=== PATIENT | female | born 1990 | race Caucasian/White ===

== ENCOUNTER 2019-04-02 16:05 | Emergency (ER) | payer SELFPAY ==
--- NOTE | 2019-04-02 16:25 | ED ---
Psychiatric Complaint - HPI Summary HPI Summary: 28 year old female presents to the ED complaining that she feels like she is overdosing on heroin, although she denies taking any heroin. She has suicidal ideation without a plan. Patient feels "like she is dying". She also reports being thirsty. Per homeless intermediate, patient has been having odd behavior in the past several days. Patient claims she got in a fight with her boyfriend several days ago, ending their relationship. She has no thoughts of harming herself or others. Patient has a history of depression and anxiety. She does not drink alcohol, smoke tobacco, or do recreational drugs. - History Of Current Complaint Chief Complaint: EDMentalHealth Time Seen by Provider: 04/02/19 16:16 Hx Obtained From: Patient Hx Last Menstrual Period: 03/14/13 ?: No Onset/Duration: Lasting Days, Still Present Timing: Constant Character: Manic, Depressed Aggravating Factor(s): Recent Stress - Had a fight with boyfriend a week ago Associated Signs And Symptoms: Positive: Hostile Related History: Positive For: Prior Psychiatric Issues - depression, anxiety Has Suicidal: Reports: Thoughts. Denies: With A Plan, Demonstrates Gesture, Has Prior Attempt(s) Has Homicidal: Denies: Thoughts, With A Plan, Demonstrates Gesture, Has Prior Attempt(s) - Allergies/Home Medications Allergies/Adverse Reactions: Allergies Allergy/AdvReac Type Severity Reaction Status Date / Time latex Allergy Rash Verified 10/25/17 10:06 PMH/Surg Hx/FS Hx/Imm Hx Endocrine/Hematology History: Denies: Hx Diabetes Cardiovascular History: Denies: Hx Hypertension, Hx Pacemaker/ICD History: Denies: Hx Renal Disease Sensory History: Denies: Hx Hearing Aid Psychiatric History: Reports: Hx Anxiety, Hx Depression Denies: Hx Panic Disorder - Surgical History Surgery Procedure, Year, and Place: DENIES Infectious Disease History: No Infectious Disease History: Denies: Traveled Outside the [place] in Last 30 Days - Social History Alcohol Use: None Substance Use Type: Reports: None Hx Tobacco Use: No Smoking Status (MU): Never Smoked Tobacco Review of Systems Neurological: Other - Feels like she is on heroin Psychological: Other - Suicidal ideation All Other Systems Reviewed And Are Negative: Yes Physical Exam - Summary Physical Exam Summary: VITAL SIGNS: Reviewed. GENERAL: Patient is a well-developed and nourished female who is lying comfortable in the stretcher. Patient is not in any acute respiratory distress. HEAD AND FACE: No signs of trauma. No ecchymosis, hematomas or skull depressions. No sinus tenderness. EYES: PERRLA, EOMI x 2, No injected conjunctiva, no nystagmus. EARS: Hearing grossly intact. Ear canals and tympanic membranes are within normal limits. MOUTH: Oropharynx within normal limits. NECK: Supple, trachea is midline, no adenopathy, no JVD, no carotid bruit, no c- spine tenderness, neck with full ROM. CHEST: Symmetric, no tenderness at palpation. LUNGS: Clear to auscultation bilaterally. No wheezing or crackles. CVS: Regular rate and rhythm, S1 and S2 present, no murmurs or gallops appreciated. ABDOMEN: Soft, non-tender. No signs of distention. No rebound, no guarding, and no masses palpated. Bowel sounds are normal. EXTREMITIES: FROM in all major joints, no edema, no cyanosis or clubbing. NEURO: Alert and oriented x 3. No acute neurological deficits. Speech is normal and follows commands. SKIN: Dry and warm. PSYCH: Depressed, quiet. No homicidal thoughts or plan. Suicidal thoughts with no plan. No signs of psychosis or pressure speech. No tangential speech. Triage Information Reviewed: Yes Vital Signs On Initial Exam: Initial Vitals Temp Pulse Resp BP Pulse Ox 97.5 F 94 16 121/79 97 04/02/19 16:11 04/02/19 16:11 04/02/19 16:11 04/02/19 16:11 04/02/19 16:11 Vital Signs Reviewed: Yes Procedures - Sedation Patient Received Moderate/Deep Sedation with Procedure: No Diagnostics - Vital Signs Vital Signs Temp Pulse Resp BP Pulse Ox 04/02/19 16:11 97.5 F 94 16 121/79 97 - Laboratory Result Diagrams: 04/02/19 16:35 04/02/19 16:35 Lab Statement: Any lab studies that have been ordered have been reviewed, and results considered in the medical decision making process. Course/Dx - Course Assessment/Plan: 28 year old female presents to the ED complaining that she feels like she is overdosing on heroin, although she denies taking any heroin. She has suicidal ideation without a plan. Patient feels "like she is dying". She also reports being thirsty. Per homeless intermediate, patient has been having odd behavior in the past several days. Patient claims she got in a fight with her boyfriend several days ago, ending their relationship. She has no thoughts of harming herself or others. Patient has a history of depression and anxiety. She does not drink alcohol, smoke tobacco, or do recreational drugs. Blood work w/o a significant abnormality. She is medically cleared. She is awaiting a MHE. Patient is hemodynamically stable and A+O x 3. Patient was evaluated by Dr. Smiley and he recommends to hold the patient onto the morning ambulated by Dr. Mckeon. At this time the patient will sign out to Dr. Ladd at shift change. - Differential Dx/Clinical Impression Differential Diagnosis/HQI/PQRI: Positive: Anxiety, Depression Provider Diagnosis: Depression Discharge ED - Sign-Out/Discharge Documenting (check all that apply): Sign-Out Patient Signing out patient TO: Rudolph Sy - Patient is a signout to Dr. Sy at change of shifts at 2200 on 04/02/19 pending psych eval in the morning. - Discharge Plan Referrals: Yolanda Weston PA [Primary Care Provider] - - Attestation Statements Document Initiated by Darrylibagnes: Yes Documenting Scribe: Marcus Gardner Provider For Whom Delphine is Documenting (Include Credential): Manas Lopez MD Scribe Attestation: Marcus Calle, scribed for Manas Lopez MD on 04/02/19 at 2150. Scribe Documentation Reviewed: Yes Provider Attestation: The documentation as recorded by the Marcus bustillos accurately reflects the service I personally performed and the decisions made by me, Manas Lopez MD Status of Scribe Document: Viewed
[2019-04-02 16:56] LABS: ABS Eosinophils 0.2 10^3/ul (0-0.6); ABS Lymphocytes 1.2 10^3/ul (1.0-4.8); ABS Monocytes 0.7 10^3/ul (0-0.8); ABS Neutrophils 5.4 10^3/ul (1.5-7.7); Eosinophil % 3.2 %; Hematocrit 37 % (35-47); Lymphocyte % 16.3 %; Mean Corpuscular HGB Conc 35 g/dL (31-36); Mean Corpuscular Hemoglobin 31 pg (27-31); Mean Corpuscular Volume 89 fL (80-97); Mean Platelet Volume 7.5 fL (7.4-10.4); Platelet Count 281 10^3/uL (150-450); Red Blood Count 4.18 10^6 /uL (3.70-4.87); Red Cell Distribution Width 15 % (10-15); White Blood Count 7.7 10^3/uL (3.5-10.8)
[2019-04-02 17:00] LABS: ALT 37 U/L (7-52); AST 43 U/L (13-39); Albumin 4.3 g/dL (3.2-5.2); Albumin/Globulin Ratio 1.7 (1-3); Alkaline Phosphatase 58 U/L (34-104); Anion Gap 6 mmol/L (2-11); BUN/Creatinine Ratio 15.7 (8-20); Blood Urea Nitrogen 8 mg/dL (6-24); CO2 Carbon Dioxide 30 mmol/L (22-32); Calcium 9.2 mg/dL (8.6-10.3); Chloride 100 mmol/L (101-111); EGFR Non-African American 144.7 (>60); Globulin 2.5 g/dL (2-4); Glucose 94 mg/dL (70-100); Potassium 3.3 mmol/L (3.5-5.0); Sodium 136 mmol/L (135-145); Total Protein 6.8 g/dL (6.4-8.9)
[2019-04-02 17:29] LABS: Acetaminophen < 15 mcg/mL; Alcohol < 10 mg/dL (<10); Salicylate < 2.50 mg/dL (<30)
[2019-04-02 17:44] LABS: TSH (Thyroid Stimulating Horm) 0.57 mcIU/mL (0.34-5.60)
[2019-04-02 19:21] LABS: Urine Appearance Cloudy; Urine Bilirubin Negative (Negative); Urine Blood Negative (Negative); Urine Color Yellow; Urine Glucose Negative (Negative); Urine Ketones Negative (Negative); Urine Nitrite Negative (Negative); Urine Protein Negative (Negative); Urine Specific Gravity 1.006 (1.010-1.030); Urine Urobilinogen Negative (Negative)
[2019-04-02 19:38] LABS: Urine Benzodiazepine Screen None Detected (None Detect); Urine Opiates Screen None Detected (None Detect)
--- NOTE | 2019-04-02 22:10 | ED ---
Progress - Progress Note Progress Note: Pt is a signout from Dr. Lopez at 2200 on 04/02/2019 for MH hold. Course/Dx - Course Course Of Treatment: Pt is a signout from Dr. Lopez at 2200 on 04/02/2019 for MH hold. Pt stable on shift. Will be signed out to Dr. Win at 0700 on 2019. - Diagnoses Provider Diagnoses: Depression, Methamphetamine abuse Discharge ED - Sign-Out/Discharge Documenting (check all that apply): Receiving Sign-Out Receiving patient FROM: Manas Lopez - Discharge Plan Condition: Stable Disposition: HOME Patient Education Materials: Polysubstance Abuse (ED) Referrals: Yolanda Weston PA [Primary Care Provider] - - Billing Disposition and Condition Condition: STABLE Disposition: Home - Attestation Statements Document Initiated by Darrylibe: Yes Documenting Scribe: Ro Kim Provider For Whom Delphine is Documenting (Include Credential): Rudolph Sy MD. Scribe Attestation: Ro Calle scribed for Rudolph Sy MD. on 04/04/19 at 0539. Scribe Documentation Reviewed: Yes Provider Attestation: The documentation as recorded by the darrylibeRo accurately reflects the service I personally performed and the decisions made by Rudolph garcia MD. Status of Scribe Document: Viewed
[2019-04-02] MEDS ORDERED: hydrOXYzine HCL TAB* 50 MG PO ONE (22:49)
[2019-04-03] MEDS ORDERED: OLANzapine TAB*ODT* 10 MG TAB PO ONE (00:23)
--- NOTE | 2019-04-03 08:13 | ED ---
Progress - Progress Note Progress Note: Patient is a sign-out at 07:00 on 04/03/19 from Rudolph Sy MD to Dr. Juanita Win MD at shift change, pending mental health hold and disposition. At 09:55, Dr. Yoni Mckeon reports that patient will be discharged with a diagnosis of methamphetamine abuse disorder. - Consult/PCP Time Called: 09:55 Consult/PCP: Yoni Mckeon Course/Dx - Diagnoses Provider Diagnoses: Depression, Methamphetamine abuse - Provider Notifications Discussed Care Of Patient With: Yoni Mckeon - At 09:55, Dr. Yoni Mckeon reports that patient will be discharged with a diagnosis of methamphetamine abuse disorder. Time Discussed With Above Provider: 09:55 Instructed by Provider To: Other - Discharge Discharge ED - Sign-Out/Discharge Documenting (check all that apply): Patient Departure - Discharge, Receiving Sign-Out Receiving patient FROM: Rudolph Sy - Patient is a sign-out at 07:00 on 04/03 from Rudolph Sy MD to Dr. Juanita Win MD at shift change, pending mental health hold and disposition. - Discharge Plan Condition: Stable Disposition: HOME Referrals: Yolanda Weston PA [Primary Care Provider] - - Attestation Statements Document Initiated by Scribe: Yes Documenting Scribe: Abimbola Coronado Provider For Whom Scribe is Documenting (Include Credential): Juanita Win MD Scribe Attestation: Abimbola Calle, scribed for Juanita Win MD on 04/03/19 at 0958. Status of Scribe Document: Ready
[2019-04-03 12:43] VITALS: BP 0/0
== END 2019-04-03 12:45 | disposition home or self-care (01) ==
LOC: ED 16:05
DX: F32.9 Major depressive disorder, single episode, unspecified (principal); F15.20 Other stimulant dependence, uncomplicated; Z79.899 Other long term (current) drug therapy; R45.851 Suicidal ideations; F41.9 Anxiety disorder, unspecified
CPT/HCPCS: 36415; 80053; 80307; 80320; 80329; 81003; 84443; 85025; 99285; A9270-GY; G0480

== ENCOUNTER 2019-05-25 13:56 | Emergency (ER) | payer OTHER ==
[2019-05-25] MEDS ORDERED: LORazepam TAB(*) 1 MG PO ONE ×3 (14:26→19:17)
--- NOTE | 2019-05-25 14:32 | ED ---
Psychiatric Complaint - HPI Summary HPI Summary: 28 year old F with hx of methamphetamine abuse presenting to [facility] accompanied by police was sent by [facility] for concerns about behavior. Patient reports she thinks she is in a movie in [place]. Patient denies drug abuse. The patient rates the pain 0/10 in severity. Symptoms aggravated by nothing. Symptoms alleviated by nothing. Patient history difficult to obtain due to tangental thought process. LEVEL 5 CAVEAT: HPI is limited because of tangental thought process. - History Of Current Complaint Chief Complaint: EDMentalHealth Time Seen by Provider: 05/25/19 13:58 Hx Obtained From: Patient Hx Last Menstrual Period: 03/14/13 Aggravating Factor(s): Nothing Alleviating Factor(s): Nothing - Allergies/Home Medications Allergies/Adverse Reactions: Allergies Allergy/AdvReac Type Severity Reaction Status Date / Time buprenorphine [From Suboxone] Allergy See Comment Verified 05/25/19 14:03 latex Allergy Rash Verified 10/25/17 10:06 naloxone [From Suboxone] Allergy See Comment Verified 05/25/19 14:03 Home Medications: Home Medications NK [No Home Medications Reported] 05/25/19 [History Confirmed 05/25/19] PMH/Surg Hx/FS Hx/Imm Hx Endocrine/Hematology History: Denies: Hx Diabetes Cardiovascular History: Denies: Hx Hypertension, Hx Pacemaker/ICD History: Denies: Hx Renal Disease Sensory History: Denies: Hx Hearing Aid Psychiatric History: Reports: Hx Anxiety, Hx Depression, Hx Bipolar Disorder Denies: Hx Eating Disorder, Hx Panic Disorder, Hx Post Traumatic Stress Disorder, Hx Schizophrenia, Hx Suicide Attempt - Surgical History Surgery Procedure, Year, and Place: DENIES Infectious Disease History: No Infectious Disease History: Denies: Traveled Outside the [place] in Last 30 Days - Family History Known Family History: Positive: Non-Contributory - Social History Alcohol Use: None Substance Use Type: Reports: Other Substance Use Comment - Amount & Last Used: pt states "I used to (use) Ice" states meth Hx Tobacco Use: No Smoking Status (MU): Heavy Every Day Tobacco Smoker - Additional Comments History Additional Comments: LEVEL 5 CAVEAT: PMHx/SHx/FHx/SocHx is limited because of tangental thought process. Review of Systems - ROS Summary Review of Systems Summary: LEVEL 5 CAVEAT: ROS is limited because tangental thought process. Negative: Fever Positive: Other - tangental thought process All Other Systems Reviewed And Are Negative: No Physical Exam - Summary Physical Exam Summary: General: Well appearing, no distress HEENT: PERRL Cardiovascular: Skin is well perfused Pulmonary: No respiratory distress, no tachypnea Abdomen: Non-distended Skin: Warm, pink, dry. Track espinoza and scattered excoriations. MSK: No edema Psych: Tangential thoughts. Frequent movements, bizarre behavior. Denies SI. Neuro: A&Ox3 LEVEL 5 CAVEAT: 2/2 intoxication Triage Information Reviewed: Yes Vital Signs On Initial Exam: Initial Vitals Temp Pulse Resp BP Pulse Ox 97.8 F 93 16 129/70 100 05/25/19 14:02 05/25/19 14:02 05/25/19 14:02 05/25/19 14:02 05/25/19 14:02 Vital Signs Reviewed: Yes Procedures - Sedation Patient Received Moderate/Deep Sedation with Procedure: No Diagnostics - Vital Signs Vital Signs Temp Pulse Resp BP Pulse Ox 05/25/19 14:02 97.8 F 93 16 129/70 100 - Laboratory Result Diagrams: 05/25/19 14:42 05/25/19 14:42 Lab Statement: Any lab studies that have been ordered have been reviewed, and results considered in the medical decision making process. Course/Dx - Course Course Of Treatment: Patient taking for mental health clearance. Patient has no active medical conditions warrantly further w/u, vital signs are stable. patient given Ativan for comfort given agitation secondary to methamphetamine use. Patient placed in mental health gown and placed on observation. We'll obtain mental health evaluation. - Differential Dx/Clinical Impression Provider Diagnosis: Methamphetamine abuse - Physician Notifications Discussed Care Of Patient With: Seng Rosario - per psych SW, Dr. Rosario thinks current presentation c/w methamphetamine abuse, will await sobriety and reasses. Discharge ED - Sign-Out/Discharge Documenting (check all that apply): Sign-Out Patient Signing out patient TO: Mirta Lazaro - pending sobriety and reassessment - Discharge Plan Condition: Stable Referrals: No Primary Care Phys,NOPCP [Primary Care Provider] - - Billing Disposition and Condition Condition: STABLE - Attestation Statements Document Initiated by Scribe: Yes Documenting Scribe: Jin Jara Provider For Whom Scribe is Documenting (Include Credential): Dr.Caelyn Dex Win MD Scribe Attestation: I, Jin Jara, scribed for Dr.Caelyn Dex Win MD on 05/25/19 at 1851. Scribe Documentation Reviewed: Yes Provider Attestation: The documentation as recorded by the scribeJin accurately reflects the service I personally performed and the decisions made by me, Dr.Caelyn Dex Win MD Status of Scribe Document: Viewed
[2019-05-25 14:54] LABS: ABS Basophils 0.1 10^3/ul (0-0.2); ABS Lymphocytes 2.3 10^3/ul (1.0-4.8); ABS Monocytes 0.6 10^3/ul (0-0.8); ABS Neutrophils 6.7 10^3/ul (1.5-7.7); Eosinophil % 0.2 %; Hematocrit 39 % (35-47); Hemoglobin 13.6 g/dL (12.0-16.0); Lymphocyte % 23.8 %; Mean Corpuscular HGB Conc 35 g/dL (31-36); Mean Corpuscular Hemoglobin 31 pg (27-31); Mean Corpuscular Volume 90 fL (80-97); Mean Platelet Volume 7.7 fL (7.4-10.4); Platelet Count 270 10^3/uL (150-450); Red Blood Count 4.37 10^6 /uL (3.70-4.87); Red Cell Distribution Width 14 % (10-15); White Blood Count 9.7 10^3/uL (3.5-10.8)
[2019-05-25 15:06] LABS: ALT 20 U/L (7-52); AST 20 U/L (13-39); Albumin 4.5 g/dL (3.2-5.2); Albumin/Globulin Ratio 1.8 (1-3); Alkaline Phosphatase 48 U/L (34-104); Anion Gap 10 mmol/L (2-11); BUN/Creatinine Ratio 25.3 (8-20); Blood Urea Nitrogen 19 mg/dL (6-24); CO2 Carbon Dioxide 24 mmol/L (22-32); Calcium 9.8 mg/dL (8.6-10.3); Chloride 106 mmol/L (101-111); EGFR African American 112.2 (>60); EGFR Non-African American 92.7 (>60); Globulin 2.5 g/dL (2-4); Glucose 79 mg/dL (70-100); Potassium 3.8 mmol/L (3.5-5.0); Sodium 140 mmol/L (135-145)
[2019-05-25 15:22] LABS: Acetaminophen < 15 mcg/mL; Alcohol < 10 mg/dL (<10); Salicylate < 2.50 mg/dL (<30)
[2019-05-25 16:16] LABS: HIV 4th Generation Nonreactive (Nonreactive)
[2019-05-25 18:25] LABS: Urine Appearance Cloudy; Urine Bilirubin Negative (Negative); Urine Blood Negative (Negative); Urine Color Amber; Urine Glucose Negative (Negative); Urine Ketones 1+ (Negative); Urine Nitrite Negative (Negative); Urine Protein 2+(100 mg/dL) (Negative); Urine Specific Gravity 1.034 (1.010-1.030); Urine Urobilinogen Negative (Negative)
[2019-05-25 18:38] LABS: Urine Bacteria Absent (Absent); Urine Red Blood Cell Absent (Absent); Urine Squamous Epithelial Cell Present (Absent); Urine White Blood Cell Absent (Absent)
[2019-05-25 18:42] LABS: Urine Benzodiazepine Screen None Detected (None Detect); Urine Opiates Screen None Detected (None Detect)
--- NOTE | 2019-05-25 19:22 | ED ---
Progress - Progress Note Progress Note: The patient is a sign-out from Dr. Juanita Win MD, to Dr. Mirta Lazaro MD, at change of shift at 1900 on 05/25/19, pending sobriety and discharge. Patient administered 2mg PO Ativan. Patient yelling at staff, loud, acute psychosis. Chemical restraints (Ativan 2mg , Haldol 5mg, Benadryl 50mg) ordered and administered at 20:24. Physical restraints also in place. Physical restraints removed at 20:20. Patient sleeping. The patient is a sign-out from Dr. Mirta Lazaro MD, to Dr. Matt Jameson MD, at change of shift at 0700 on 05/26/19, pending re-evaluation and discharge. Re-Evaluation - Re-Evaluation First Eval Re-Evaluation Time: 19:20 Comment: Patient given Ativan PO Second Eval Re-Evaluation Time: 20:24 Comment: Patient loud, acute psychosis. Chemical restraints ordered and administered, physical restraints also in place. Third Eval Re-Evaluation Time: 22:20 Change: Improved Comment: Physical restraints removed. Patient asleep after chemical restraints. Course/Dx - Course Course Of Treatment: Patient administered Ativan as she is pacing around. Patient yelling and is a safety concern. She was chemically restrained with Ativan, Haldol, and Benadryl. - Diagnoses Provider Diagnoses: Methamphetamine abuse, Acute psychosis Discharge ED - Sign-Out/Discharge Documenting (check all that apply): Sign-Out Patient, Receiving Sign-Out Signing out patient TO: Matt Jameson - Patient is a sign-out to Dr. Matt Jameson MD, at change of shift at 0700 on 05/26/19, pending re-evaluation and discharge. Receiving patient FROM: Juanita Win - Patient is a sign-out from Dr. Juanita Win MD, at change of shift at 1900 on 05/25/19, pending sobriety and discharge. - Discharge Plan Condition: Stable Patient Education Materials: Polysubstance Abuse (ED) Referrals: No Primary Care Phys,NOPCP [Primary Care Provider] - Additional Instructions: Per completion of a mental health evaluation, you are cleared for release and do not require inpatient psychiatric hospitalization at this time. Please go to nearest emergency room or call 911 if safety concerns arise or condition worsens. Important Phone Numbers: [facility] ph:[phone] Suicide Prevention and Crisis Services ph:[phone] National Suicide Prevention Lifeline ph:[phone]- [facility] (9861) [facility] ph:[phone] Alcoholics Anonymous ph: [facility] ph:[phone] [facility] Police ph:[phone] RECOMMENDATION: Follow instructions of Emergency Department Staff and follow up with [facility] and [facility] on Tuesday. - Billing Disposition and Condition Condition: STABLE - Attestation Statements Document Initiated by Scribe: Yes Documenting Scribe: Anette Sanchez Provider For Whom Scribe is Documenting (Include Credential): Mirta Lazaro MD Scribe Attestation: Anette Calle, scribed for Mirta Lazaro MD on 05/26/19 at 0649. Scribe Documentation Reviewed: Yes Provider Attestation: The documentation as recorded by the Anette bustillos accurately reflects the service I personally performed and the decisions made by me, Mirta Lazaro MD Status of Scribe Document: Viewed Procedures - Sedation Patient Received Moderate/Deep Sedation with Procedure: No - Assessment for Patient Restraint Face to Face Encounter Date: 05/25/19 Face to Face Encounter Time: 22:15 Evaluation of the Patient's Immediate Situation: Patient is loud and aggressive. Patient is yelling, swearing, and being uncooperative. After medication, the patient is sleeping. Patient's Reaction to Intervention: Multiple attempts to deescalate were unsuccessful. Patient responded well to sedation, chemical restraint. Patient's Medication and Behavioral Condition: She ended up receiving Benadryl, Ativan, Haldol IM after arrival to the Emergency Department. Patient is resting comfortably. Evaluate Need for Continued Restraint: Terminate - Patient asleep.
[2019-05-25] MEDS ORDERED: LORazepam INJ* 2 MG/ML 1 ML VIAL ONE (20:08)
[2019-05-25] MEDS ORDERED: diPHENhydraMINE IV* 50 MG/ML 1 ml VIAL (BENADRYL) IM ONE (20:13)
[2019-05-25] MEDS ORDERED: Haloperidol INJ IV/IM* 5 MG/ML AMP IM ONE (20:13)
[2019-05-25] MEDS ORDERED: LORazepam INJ* 2 MG/ML 1 ML VIAL IM ONE (20:13)
--- NOTE | 2019-05-26 08:22 | ED ---
Progress - Progress Note Progress Note: The patient is a sign-out from Dr. Lazaro at 0700 05/26/19. Patient opens her eyes to voice but is not responding verbally. She will continue to metabolize. Patient is awake and wants to go home. Plan for discharge was discussed iwth the patient and she was agreeable with this plan. Re-Evaluation - Re-Evaluation First Eval Re-Evaluation Time: 19:20 Second Eval Re-Evaluation Time: 20:24 Third Eval Re-Evaluation Time: 22:20 Fourth Eval Re-Evaluation Time: 08:15 Comment: Patient opens her eyes to voice but is not responding verbally. She will continue to metabolize. Course/Dx - Course Course Of Treatment: The patient is a sign-out from Dr. Lazaro at 0700 05/26/19. Patient opens her eyes to voice but is not responding verbally. She will continue to metabolize. Patient is awake and wants to go home. Plan for discharge was discussed iwth the patient and she was agreeable with this plan. - Diagnoses Provider Diagnoses: Methamphetamine abuse, Acute psychosis Discharge ED - Sign-Out/Discharge Documenting (check all that apply): Patient Departure - Discharge - Discharge Plan Condition: Stable Disposition: HOME Patient Education Materials: Polysubstance Abuse (ED) Referrals: No Primary Care Phys,NOPCP [Primary Care Provider] - Additional Instructions: Per completion of a mental health evaluation, you are cleared for release and do not require inpatient psychiatric hospitalization at this time. Please go to nearest emergency room or call 911 if safety concerns arise or condition worsens. Important Phone Numbers: [facility] Services Unit ph:[phone] Suicide Prevention and Crisis Services ph:[phone] National Suicide Prevention Lifeline ph:[phone]- [facility] (5392) [facility] ph:[phone] Alcoholics Anonymous ph: [facility] ph:[phone] [facility] Police ph:[phone] RECOMMENDATION: Follow instructions of Emergency Department Staff and follow up with [facility] and [facility] on Tuesday. - Billing Disposition and Condition Condition: STABLE Disposition: Home - Attestation Statements Document Initiated by Scribe: Yes Documenting Scribe: Quan Adame Provider For Whom Delphine is Documenting (Include Credential): Matt Jameson MD Scribe Attestation: Quan Calle, scribed for Matt Jameson MD on 05/26/19 at 1319. Scribe Documentation Reviewed: Yes Provider Attestation: The documentation as recorded by the Quan bustillos accurately reflects the service I personally performed and the decisions made by me, Matt Jameson MD Status of Scribe Document: Viewed
[2019-05-26 11:09] VITALS: BP 96/60
== END 2019-05-26 11:07 | disposition home or self-care (01) ==
LOC: ED 13:56
DX: F15.10 Other stimulant abuse, uncomplicated (principal); F23 Brief psychotic disorder; F41.9 Anxiety disorder, unspecified; F31.9 Bipolar disorder, unspecified; F17.200 Nicotine dependence, unspecified, uncomplicated; Z88.5 Allergy status to narcotic agent; Z91.040 Latex allergy status
CPT/HCPCS: 36415; 80053; 80307; 80320; 80329; 81003; 81015; 84443; 84702; 85025; 87389; 96372; 99285; A9270-GY; G0480; J1200; J1630; J2060

== ENCOUNTER 2023-04-05 11:04 | Inpatient (IN) ==
[2023-04-05] MEDS ORDERED: Promethazine INJ(RESTRICTED) 25 MG/ML 1 ml VIAL IV PRN (12:03)
[2023-04-05] MEDS ORDERED: Buffered Lidocaine 1% SYRIN 1 ml INTRADERM ONE (12:03)
[2023-04-05] MEDS ORDERED: Nalbuphine 10 MG/ML 1 ML VIAL IV PRN (12:03)
[2023-04-05 13:01] LABS: ABS Lymphocytes 1.2 10^3/uL (1.0-4.8); ABS Monocytes 0.6 10^3/uL (0.0-0.9); ABS Neutrophils 9.6 10^3/uL (1.5-7.6); ABS Nucleated RBC 0.01 10^3/ul; Eosinophil % 0.2 %; Hematocrit 30.4 % (35-45); Hemoglobin 10.2 g/dL (11.5-14.3); Lymphocyte % 10.7 %; Mean Corpuscular Hemoglobin 28.6 pg (27-33); Mean Corpuscular Hgb Conc 33.6 g/dL (31-36); Mean Corpuscular Volume 85.1 fL (80-97); Mean Platelet Volume 8.4 fL (7.5-11.2); Nucleated Red Blood Cells % 0.1 %/100WBC (0.0-0.8); Platelet Count 349 10^3/uL (150-450); Red Blood Count 3.57 10^6/uL (3.63-4.92); Red Cell Distribution Width 15.3 % (12-17); White Blood Count 11.4 10^3/uL (3.8-11.8)
[2023-04-05 13:20] LABS: Albumin 3.3 g/dL (3.2-5.2); Albumin/Globulin Ratio 1.1 (1-3); Calcium 8.5 mg/dL (8.6-10.3); Creatinine, Serum 0.58 mg/dL (0.51-0.95); Potassium 3.9 mmol/L (3.5-5.0); Total Bilirubin 0.4 mg/dL (0.2-1.0); Total Protein 6.3 g/dL (6.4-8.9); Uric Acid 4.4 mg/dL (2.3-6.6)
[2023-04-05] MEDS ORDERED: Lactated Ringers 1000 ml BAG 1,000 ML IV ONE (14:54)
[2023-04-05 15:03] LABS: Urine Creatinine Concentration 153.62 mg/dL (20.00-320.00); Urine TP Creat Ratio 0.8 mg/mg
[2023-04-05] MEDS: Calcium Carb (TUMS) 500 mg CHEW TAB PO PRN (15:09)
[2023-04-05 15:20] LABS: Urine Benzodiazepine Screen None Detected (None Detect); Urine Cannabinoids Screen None Detected (None Detect); Urine Opiates Screen None Detected (None Detect)
[2023-04-05] MEDS: Benzocaine/Menthol LOZ MT PRN (15:24)
[2023-04-05] MEDS ORDERED: Penicillin G Potassium IV 5,000,000 UNITS in NS 0.9% 100 ml BAG 100 ML IVPB ONE (18:14)
[2023-04-05 18:50] LABS: Magnesium 1.8 mg/dL (1.9-2.7)
[2023-04-05] MEDS ORDERED: Lidocaine 1% VIAL 10 MG/ML 30 ML VIAL INJ PRN (19:07)
[2023-04-05] MEDS ORDERED: Lactated Ringers 1000 ml BAG 1,000 ML IV SCH (20:00)
[2023-04-05] MEDS: Penicillin G Potassium IV 3,000,000 UNITS in NS 0.9% 100 ml BAG 100 ML IVPB SCH (22:45)
[2023-04-06] MEDS: Penicillin G Potassium IV 3,000,000 UNITS in NS 0.9% 100 ml BAG 100 ML IVPB SCH (02:54)
[2023-04-06] MEDS ORDERED: Dibucaine 1% OINT 28.35 GM TUBE PR PRN (04:48)
[2023-04-06] MEDS ORDERED: Glycerin ADULT 2.4 gm SUPP PR PRN (04:48)
[2023-04-06] MEDS ORDERED: Witch Hazel PAD JAR TOPICAL PRN (04:48)
[2023-04-06] MEDS ORDERED: Oxytocin in LR 20,000 MILLI.UNIT/1,000 ML BAG IV SCH (04:50)
[2023-04-06] MEDS ORDERED: Lactated Ringers 1000 ml BAG 1,000 ML IV SCH (05:00)
[2023-04-06] MEDS: Calcium Carb (TUMS) 500 mg CHEW TAB PO PRN ×2 (09:24→20:35)
[2023-04-06] MEDS: Nicotine GUM 4MG FRUIT FLAVOR PO PRN ×2 (13:06→20:45)
[2023-04-06] MEDS: Benzocaine/Menthol LOZ MT PRN (17:25)
[2023-04-07] MEDS ORDERED: risperiDONE-M 1 mg Oradis TAB PO PRN (05:50)
[2023-04-07 06:56] LABS: ABS Basophils 0.1 10^3/uL (0.0-0.1); ABS Eosinophils 0.1 10^3/uL (0.0-0.5); ABS Lymphocytes 2.5 10^3/uL (1.0-4.8); ABS Monocytes 0.8 10^3/uL (0.0-0.9); ABS Neutrophils 8.9 10^3/uL (1.5-7.6); Eosinophil % 0.7 %; Hematocrit 28.8 % (35-45); Hemoglobin 9.6 g/dL (11.5-14.3); Mean Corpuscular Hemoglobin 28.6 pg (27-33); Mean Corpuscular Hgb Conc 33.4 g/dL (31-36); Mean Corpuscular Volume 85.6 fL (80-97); Mean Platelet Volume 8.4 fL (7.5-11.2); Platelet Count 310 10^3/uL (150-450); Red Blood Count 3.37 10^6/uL (3.63-4.92); Red Cell Distribution Width 15.1 % (12-17); White Blood Count 12.3 10^3/uL (3.8-11.8)
[2023-04-07 09:17] LABS: Urine Benzodiazepine Screen None Detected (None Detect); Urine Buprenorphine Screen None Detected (None Detect); Urine Cannabinoids Screen None Detected (None Detect); Urine Fentanyl Screen None Detected (None Detect); Urine Hydrocodone Screen None Detected (None Detect); Urine Opiates Screen None Detected (None Detect)
[2023-04-07 09:58] LABS: Urine Benzodiazepine Screen None Detected (None Detect); Urine Buprenorphine Screen Presumptive Positive (None Detect); Urine Cannabinoids Screen None Detected (None Detect); Urine Fentanyl Screen None Detected (None Detect); Urine Hydrocodone Screen None Detected (None Detect); Urine Opiates Screen None Detected (None Detect)
[2023-04-07] MEDS: Benzocaine/Menthol LOZ MT PRN (17:13)
[2023-04-07] MEDS: Nicotine GUM 4MG FRUIT FLAVOR PO PRN (17:13)
[2023-04-07 18:08] LABS: ABS Basophils 0.1 10^3/uL (0.0-0.1); ABS Eosinophils 0.1 10^3/uL (0.0-0.5); ABS Monocytes 0.5 10^3/uL (0.0-0.9); ABS Neutrophils 8.8 10^3/uL (1.5-7.6); ABS Nucleated RBC 0.01 10^3/ul; Eosinophil % 1.2 %; Hematocrit 29.6 % (35-45); Hemoglobin 9.8 g/dL (11.5-14.3); Lymphocyte % 17.3 %; Mean Corpuscular Hemoglobin 28.6 pg (27-33); Mean Corpuscular Volume 86.7 fL (80-97); Mean Platelet Volume 8.5 fL (7.5-11.2); Nucleated Red Blood Cells % 0.1 %/100WBC (0.0-0.8); Platelet Count 311 10^3/uL (150-450); Red Blood Count 3.41 10^6/uL (3.63-4.92); White Blood Count 11.5 10^3/uL (3.8-11.8)
[2023-04-07 18:25] LABS: Calcium 8.2 mg/dL (8.6-10.3); Creatinine, Serum 0.59 mg/dL (0.51-0.95); Potassium 4.4 mmol/L (3.5-5.0); eGFR CKD-EPI 123.5 (>60)
[2023-04-07 19:19] LABS: High Sensitivity Troponin 1 Hr 7 pg/mL (<15)
[2023-04-08] MEDS ORDERED: Buprenorp/Nalox 4-1 MG FILM SL ONE (09:18)
[2023-04-08] MEDS ORDERED: Buprenorp/Nalox 4-1 MG FILM SL PRN (09:18)
[2023-04-08 15:56] VITALS: BP 121/73
== END 2023-04-08 14:22 | disposition home or self-care (01) | DRG 560 ==
LOC: MCHOBOUT 11:04 → MCHOB 18:33
PROVIDERS: ADMIT Midwife; ATTEND Midwife